=== PATIENT | female | born 1960 | race Caucasian/White ===

== ENCOUNTER 2023-02-12 14:45 | Outpatient (CLI) | payer BC, SELFPAY | END 2023-02-12 14:46 | disposition home or self-care (01) | LOC: LKVREF 14:49 | PROVIDERS: PCP Emergency Medicine; Visit Provider Emergency Medicine | DX: H47.20 Unspecified optic atrophy (principal); E78.5 Hyperlipidemia, unspecified | CPT/HCPCS: 84443 ==

== ENCOUNTER 2023-07-28 10:04 | Outpatient (CLI) | payer BC, SELFPAY | END 2023-07-28 10:05 | disposition home or self-care (01) | PROVIDERS: PCP Family Medicine; Visit Provider Family Medicine | DX: I49.9 Cardiac arrhythmia, unspecified (principal); Z11.59 Encounter for screening for other viral diseases; Z13.220 Encounter for screening for lipoid disorders | CPT/HCPCS: 80053; 80061; 84443; 86803 ==

== ENCOUNTER 2023-08-10 14:49 | Outpatient (CLI) | payer BC, SELFPAY | END 2023-08-10 14:50 | disposition home or self-care (01) | LOC: RAD 14:50 | PROVIDERS: PCP Family Medicine; Visit Provider Internal Medicine Cardiovascular Disease | DX: I48.0 Paroxysmal atrial fibrillation (principal); I51.7 Cardiomegaly | CPT/HCPCS: 93306 ==

== ENCOUNTER 2023-08-31 10:47 | Outpatient (CLI) | payer BC, SELFPAY | END 2023-08-31 10:48 | disposition home or self-care (01) | PROVIDERS: PCP Family Medicine; Visit Provider Physician Assistant Medical | DX: R10.9 Unspecified abdominal pain (principal) | CPT/HCPCS: 87086 ==

== ENCOUNTER 2023-09-02 08:00 | Outpatient (CLI) | payer BC, SELFPAY | END 2023-09-02 08:01 | disposition home or self-care (01) | LOC: NFLDREF 09-04 08:01 | PROVIDERS: PCP Family Medicine; Referring Provider Family Medicine; Visit Provider Physician Assistant Medical | DX: R19.7 Diarrhea, unspecified (principal) | CPT/HCPCS: 87493; 87505 ==

== ENCOUNTER 2024-01-25 11:24 | Outpatient (CLI) | payer BC, SELFPAY | END 2024-01-25 11:25 | disposition home or self-care (01) | PROVIDERS: PCP Family Medicine; Visit Provider Family Medicine | DX: K52.839 Microscopic colitis, unspecified (principal) | CPT/HCPCS: 80053; 82306; 82607; 82728; 83735; 84443 ==

== ENCOUNTER 2024-06-30 10:48 | Outpatient (CLI) | payer BC, SELFPAY | END 2024-06-30 10:49 | disposition home or self-care (01) | PROVIDERS: PCP Family Medicine; Referring Provider Family Medicine; Visit Provider Family Medicine | DX: R23.8 Other skin changes (principal) | CPT/HCPCS: 88305 ==

== ENCOUNTER 2024-11-11 11:37 | Outpatient (CLI) | payer MEDICARE, SELFPAY | END 2024-11-11 11:38 | disposition home or self-care (01) | PROVIDERS: PCP Family Medicine; Visit Provider Family Medicine | DX: E55.9 Vitamin D deficiency, unspecified (principal); E78.00 Pure hypercholesterolemia, unspecified | CPT/HCPCS: 80053; 80061; 82306 ==

== ENCOUNTER 2024-12-01 14:25 | Outpatient (CLI) | payer MEDICARE, SELFPAY ==
--- NOTE | 2024-12-01 14:30 | CRLHL7_ITS ---
For Patients: As a result of the Century Cures Act, medical imaging exams and procedure reports are released immediately into your electronic medical record. You may view this report before your referring provider. If you have questions, please contact your health care provider. XR DXA Bone Mineral Density (BMD) Reason for exam: History of breast cancer. Current height (in): 66. Weight (lb): 152. Menopause age: 40. Ethnicity: White. 1. Have you had a previous hip or vertebral fracture? No. 2. Have you had any fractures during your adult life which did not result from significant trauma (e.g., auto accident)? No. 3. Did either of your parents have a hip fracture? No. 4. Do you smoke? No. 5. Have you ever taken Glucocorticoids? No. 6. Do you have rheumatoid arthritis? No. 7. Do you have secondary osteoporosis? No. 8. Do you drink 3 or more alcoholic drinks per day? No. 9. Are you being treated for osteoporosis? No. 10. Have you ever taken any of the following medications: Actonel, Evista, Fosamax, Miacalcin, Reclast, Boniva, Forteo, HRT (i.e., estrogen/hormone therapy), Protelos, Prolia, Vitamin D, Calcium, other ??? please specify. ANSWER: Yes, vitamin D and calcium. 11. Do you have any of the following medical conditions: Anorexia or bulimia, asthma or emphysema, end stage renal disease, hyperparathyroidism, any seizure disorders, cancer, inflammatory bowel diseases, hysterectomy, other ??? please specify. ANSWER: Yes, breast cancer, inflammatory bowel diseases, and hysterectomy. 12. What was your maximum height (inches)? 66. 13. Do you perform weight bearing exercise regularly? Yes. 14. Do you regularly consume dairy products? No. 15. Do you drink caffeinated beverages? No. 16. At what age did your period start? 12. 17. Are you premenopausal? No. 18. How many full-term pregnancies have you had? 3. 19. Have you ever missed your period for more than 6 months in a row (not including or menopause)? No. TECHNIQUE: Bone mineral density study was performed using the [email or web address]. FINDINGS: The results of the study expressed as bone mineral density (BMD) are as follows: Lumbar spine L1 to L3: BMD: 0.997 g/cm2. T-score: -0.2. Z-score: 1.5 Neck Left: BMD: 0.807 g/cm2. T-score: -0.4. Z-score: 1.1 Right: BMD: 0.801 g/cm2. T-score: -0.4. Z-score: 1.1 Total Left: BMD: 0.908 g/cm2. T-score: -0.3. Z-score: 0.9 Right: BMD: 0.921 g/cm2. T-score: -0.2. Z-score: 1.1 IMPRESSION: Normal bone density. *Comparison exams done prior to 01/2020 were performed on different unit, [employer]. Sally Berry M.D. Body/Diagnostic Radiologist [email or web address] ANGELA/soo vann/Dictated by: Sally Berry MD @ 12/02/2024 3:25:00 AM (Electronically Signed)
== END 2024-12-01 14:26 | disposition home or self-care (01) ==
PROVIDERS: PCP Family Medicine; Visit Provider Family Medicine
DX: Z13.820 Encounter for screening for osteoporosis (principal); E55.9 Vitamin D deficiency, unspecified; Z85.3 Personal history of malignant neoplasm of breast
CPT/HCPCS: 77080

== ENCOUNTER 2025-05-24 14:43 | Outpatient (CLI) | payer MEDICARE, SELFPAY | END 2025-05-24 14:44 | disposition home or self-care (01) | PROVIDERS: PCP Family Medicine; Visit Provider Nurse Practitioner Family | DX: R10.85 Abdominal pain of multiple sites (principal) | CPT/HCPCS: 80076; 82150; 83690; 86140 ==

== ENCOUNTER 2025-05-31 10:23 | Outpatient (CLI) | payer MEDICARE, SELFPAY ==
[2025-05-31 11:00] LABS: Creatinine* 0.7 mg/dL (0.5-1.5); Estimated Glomerular Filt Rate 96 ml/min
--- NOTE | 2025-05-31 11:00 | CRLHL7_ITS ---
For Patients: As a result of the Century Cures Act, medical imaging exams and procedure reports are released immediately into your electronic medical record. You may view this report before your referring provider. If you have questions, please contact your health care provider. INDICATION: Abdominal pain. TECHNIQUE: CT abdomen and pelvis acquired with 79 mL Isovue 370 IV contrast. COMPARISON: None available. FINDINGS: Liver: Scattered too small to characterize punctate hypodense hepatic lesions. Gallbladder and bile ducts: No calcified gallstones. Mild intrahepatic and extrahepatic biliary duct dilation, common bile duct measures up to 1.0 cm in diameter. No definite choledocholithiasis identified. Pancreas: Mild dilation of the pancreatic duct at the pancreatic head. No definite mass identified. Interdigitated fat versus small lipomas in the pancreatic tail. Spleen: Unremarkable. Adrenal glands: Unremarkable. Kidneys: Kidneys enhance symmetrically, without hydronephrosis. Retroperitoneum: No lymphadenopathy. Bowel and mesentery: Bowel is not obstructed. No significant ascites. Scattered colonic diverticulosis, without evidence of acute diverticulitis. Normal appendix. Bladder: Mild circumferential bladder wall thickening. Reproductive organs: Post hysterectomy. Pelvic lymph nodes: Enlarged left external iliac chain lymph node measuring 1.3 x 1.7 cm (series 2, image 107). Vessels: Scattered atherosclerotic calcifications. Abdominal wall: No acute abdominal wall abnormality. Partially visualized bilateral breast implants. Bones: Multilevel degenerative changes of the spine. Small sclerotic lesion in the posterior right iliac bone (series 2, image 91). Lower chest: No focal consolidation. IMPRESSION: 1. Enlarged left external iliac chain lymph node, indeterminate. 2. Mild intrahepatic and extrahepatic biliary duct dilation, as well as mild dilation of the pancreatic duct. Recommend further evaluation with ERCP to evaluate for an ampullary mass. 3. Mild circumferential urinary bladder wall thickening, may reflect cystitis. Recommend correlation with urinalysis. 4. Small sclerotic lesion in the posterior right iliac bone. Comparison with prior studies to assess for stability is recommended. Please note that all CT scans at this facility use dose modulation, iterative reconstruction, and/or weight-based dosing when appropriate to reduce radiation dose to as low as reasonably achievable. Dictated by Gris John MD @ 05/31/2025 6:28:14 PM (Electronically Signed)
== END 2025-05-31 10:24 | disposition home or self-care (01) ==
LOC: CT 10:24
PROVIDERS: PCP Family Medicine; Visit Provider Nurse Practitioner Family
DX: R10.9 Unspecified abdominal pain (principal); R59.0 Localized enlarged lymph nodes; N30.80 Other cystitis without hematuria; M89.9 Disorder of bone, unspecified
CPT/HCPCS: 36415; 74177; 82565; Q9967